=== PATIENT | male | born 2000 | race Two or more races ===

== ENCOUNTER 2023-03-27 07:35 | Outpatient (CLI) | payer OTHER ==
[2023-03-27 09:28] LABS: MYCOPLASMA PNEUMONIAE IGM NON REACTIVE (NO REACTIVE)
== END 2023-03-27 07:46 | disposition home or self-care (01) ==
LOC: LAB 07:35
DX: J06.9 Acute upper respiratory infection, unspecified (principal); A49.3 Mycoplasma infection, unspecified site